=== PATIENT | female | born 1955 | race Caucasian/White ===

== ENCOUNTER 2017-05-23 13:48 | Emergency (ER) | payer OTHER, SELFPAY ==
[2017-05-23 13:49] VITALS: BP 176/85; PULSE 117; RESP 26; TEMP 36.7; O2SAT 98; BMI 25.5
[2017-05-23 14:02] VITALS: BP 155/98; PULSE 107; RESP 17; O2SAT 100
--- NOTE | 2017-05-23 14:02 | EKG12_ITS ---
Test Reason : CP Blood Pressure : / mmHG Vent. Rate : 110 BPM Atrial Rate : 110 BPM P-R Int : 146 ms QRS Dur : 086 ms QT Int : 346 ms P-R-T Axes : 044 -24 057 degrees QTc Int : 468 ms Sinus tachycardia Inferior infarct , age undetermined Abnormal ECG Confirmed by ANTONIA DAVILA, NAEEM ([id number]), primer expeditor and drier RAMA JOSE ([id number]) on 05/27/2017 1:31:45 PM Referred By: VIOLETA Confirmed By:NAEEM KNIGHT MD
--- NOTE | 2017-05-23 14:20 | RAD_ITS ---
STUDY: X-RAY CHEST REASON FOR EXAM: Female, 62 years old. Chest pain TECHNIQUE: Single AP portable view of the chest. COMPARISON: None. FINDINGS: The lungs are clear and expanded. There is no demonstrated pleural abnormality. Normal size heart. Normal mediastinum and gaudencio. Normal visualized pulmonary arteries. There is atherosclerotic calcification of the aortic arch with tortuosity. Normal visualized thoracic spine. There is degenerative osteoarthritis of the bilateral shoulders. There is no demonstrated abnormality of the visualized soft tissue structures of the upper abdomen. RAD/Chest 1 View (Portable) IMPRESSION: Degenerative changes, as described above. No demonstrated acute cardiopulmonary process. Electronically Signed: Patrick Valverde MD at 14:37 EDT Tel , Service support ,
[2017-05-23 14:24] LABS: Absolute Lymphocyte Count 3.14 X10^3/ul (0.83-4.51); Basophil# 0.08 X10^3/uL; Basophil% 1.1 % (0-1); Eosinophil# 0.34 X10^3/uL; Eosinophils% 4.6 % (0-5); Hematocrit 43.2 % (37-47); Hemoglobin 14.8 g/dl (12.0-15.0); Lymphocyte # 3.14 X10^3/ul (4.0); Lymphocyte % 42.5 % (19-41); Mean Corp Hgb Conc 34.3 g/gl (32-36); Mean Corpuscular Hgb 30.8 pg (27.0-32.0); Mean Corpuscular Volume 89.8 fL (81-99); Mean Platelet Vol. 10.3 fl (6.2-12.0); Monocyte# 0.85 X10^3/uL; Monocyte% 11.5 % (0-10); Neutrophil # 2.97 X10^3/uL (2.7-7.7); Neutrophil % 40.3 % (47-70); POSITIVE COUNT NO; POSITIVE DIFFERENTIAL NO; POSITIVE MORPHOLOGY NO; Platelet Count 294 K/mm3 (150-450); RBC Distribution Width SD 42.7 fl (35.1-43.9); Red Blood Count 4.81 M/mm3 (4.2-5.4); White Blood Count 7.4 K/mm3 (4.4-11.0)
--- NOTE | 2017-05-23 14:30 | ED.VISSUMM ---
- ER Visit Summary Date of Service: 05/23/17 Chief Complaint: Chest pain History of Present Illness: The patient is a 62 F past medical history of hypertension and high cholesterol. Prior smoker but quit 20 years ago. Both parents have history of coronary disease. This patient had a negative stress test about 5 years ago. But nothing more recently. Today she is walking to the grocery store with her when she started getting midsternal chest pain radiating to her neck. She denies nausea, diaphoresis or shortness of breath. She has never had anything like this before. No recent travel or surgery. No mobilization. No leg pain or swelling. No hemoptysis. No prior history of DVT or PE. No calf pain or swelling. The pain is not pleuritic. The pain has gotten better since it started. She has not taken anything for it yet. Physical Examination: Middle-aged female vital signs are stable afebrile pulse ox 100% on 2 L no hypoxia. H EENT exam unremarkable neck nontender no lymphadenopathy. Lungs clear to auscultation bilaterally. Heart regular rhythm rate about 110 no murmur. Abdomen soft nontender no said no giving or masses. Chest wall nontender no ecchymosis or bruising. No subcu air. She is moving all 4 extremities. Neurovascular intact. Calves are nontender without edema or cords. Back exam normal. Neurologic exam normal. NIH is 0. Test Results: She will undergo cardiac workup. See normal. BMP normal except for potassium of 3.0. Troponin normal. Initial EKG sinus tach at 110 with no acute signs of ID or ischemia. A second EKG was done to sinus rhythm at 96 and was unchanged again no signs of ischemia or ID. Chest x-ray showed a normal cardiac silhouette and mediastinum. Was unremarkable read both by myself and the radiologist. Emergency Department Course and Treatment: With aspirin and sublingual nitro for chest pain. Sublingual nitro did really nothing for her pain. Treatment Plan: Because of both patient and her that her cardiac workup was negative. I do not have a specific cause for her pain. I discussed admission for further evaluation and possible stress testing. They did not want to be admitted. They are concerned with how their insurance is going to view the ER visit and possibly pay or not pay for the evaluation. She wants to be discharged and follow-up as an outpatient. I have her primary care physician from [place] on page. Disposition: Discharge Impression: Chest pain of uncertain etiology This note was generated with [employer] dictation software. It may contain incorrect words, spelling, and punctuation that were not noted in review of the chart prior to signing ED Disposition - Plan for ED Patient: Chief Complaint: Chest Pain Referrals: [facility] Doctor,Out of [Primary Care Provider] -
[2017-05-23 14:35] LABS: Anion Gap 10 (5-15); BUN 16 mg/dL (7-18); BUN/Creat Ratio 22.4 RATIO (10-20); Calcium,Total 9.3 mg/dL (8.5-10.1); Chloride 99 mmol/L (98-107); Creatinine, Serum 0.71 mg/dL (0.55-1.02); EST Glomerular Filtration Rate 89 mL/min (>60); Est Glom Filt Rate - Afr Amer 107 mL/min (>60); Estimated Creatinine Clearance 78.88 ml/min; Glucose 91 mg/dL (74-106); Sodium Level 136 mmol/L (136-145)
[2017-05-23] MEDS: Aspirin 325 MG Tablet PO (14:43)
[2017-05-23 14:44] VITALS: BP 139/89; PULSE 106
[2017-05-23 15:02] VITALS: BP 125/78; PULSE 104
--- NOTE | 2017-05-23 15:06 | EKG12_ITS ---
Test Reason : REPEAT CP Blood Pressure : / mmHG Vent. Rate : 096 BPM Atrial Rate : 096 BPM P-R Int : 146 ms QRS Dur : 084 ms QT Int : 354 ms P-R-T Axes : 044 -26 029 degrees QTc Int : 447 ms Normal sinus rhythm Normal ECG Confirmed by NAEEM KNIGHT MD ([id number]), editor book RAMA JOSE ([id number]) on 05/27/2017 1:32:09 PM Referred By: VIOLETA Confirmed By:NAEEM KNIGHT MD
[2017-05-23 15:07] VITALS: BP 116/77; PULSE 110; RESP 16; O2SAT 97
--- NOTE | 2017-05-23 16:18 | DCINST.ED_ITS ---
ED Disposition - Plan for ED Patient: Disposition: Home or Assisted Living Chief Complaint: Chest Pain Instructions: ED Chest Pain Atypical Unkn Cause Referrals: [facility] Doctor,Out of [Primary Care Provider] - As soon as possible Additional Instructions: Your labs, chest x-ray, EKGs were all normal today. No signs of this being a heart attack. I am uncertain of the exact cause your pain. In absolutely needs further evaluation and I strongly suggest following up with your primary care physician to get an outpatient stress test. Return or follow-up with your local emergency department if you are feeling worse or increasing pain.
[2017-05-23 16:25] VITALS: BP 123/87; PULSE 90; RESP 14; O2SAT 97
== END 2017-05-23 16:27 | disposition home or self-care (01) ==
PROVIDERS: Emergency Provider Emergency Medicine
DX: R07.89 Other chest pain (principal); I10 Essential (primary) hypertension; E78.00 Pure hypercholesterolemia, unspecified; Z87.891 Personal history of nicotine dependence; Z79.899 Other long term (current) drug therapy
CPT/HCPCS: 71045; 80048; 84484; 85025; 93005; 99284